=== PATIENT | female | born 1940 ===

== ENCOUNTER 2019-05-30 09:26 | Emergency (ER) | payer MEDICARE ==
[2019-05-30] MEDS ORDERED: oxyCODONE /ACETAMINOPHEN 5-325MG TAB PO ONE (09:54)
--- NOTE | 2019-05-30 09:59 | Emergency Department Report ---
ED General Adult HPI - General Chief complaint: Extremity Injury, Lower Stated complaint: LEG PAIN/FALL Time Seen by Provider: 05/30/19 09:43 Source: patient, EMS Mode of arrival: Wheelchair Limitations: No Limitations - History of Present Illness Initial comments: 78-year-old female patient with history of hypertension, diabetes, and hypothyroidism presents with complaints of bilateral leg pain, worse in the right and low back pain 2 weeks. Patient reports she fell about one month ago but did not have any pain at that time. She also has history of a right knee replacement. She denies any swelling in her legs, recent long travel, or history of DVT/PE or hormone use. She rates her pain as a 10/10 in severity and states that worsens with movement of the legs. Patient also denies any numbness/tingling/weakness in her legs, also latter/bowel control, or history of cancer. Patient states she is able to ambulate but the pain worsens with am bulation also. Patient reports pain improves with Tylenol. - Related Data Previous Rx's Medication Instructions Recorded Last Taken Type Acetaminophen/Codeine [Tylenol 1 tab PO Q8H PRN #8 tab 05/30/19 Unknown Rx /Codeine # 3 tab] Methocarbamol [Robaxin] 500 mg PO TID #21 tablet 05/30/19 Unknown Rx Allergies Allergy/AdvReac Type Severity Reaction Status Date / Time Sulfa (Sulfonamide Allergy Unknown Verified 05/30/19 09:44 Antibiotics) ED Review of Systems ROS: Stated complaint: LEG PAIN/FALL Other details as noted in HPI ED Past Medical Hx - Past Medical History Previous Medical History?: Yes Hx Hypertension: Yes Hx Diabetes: Yes Hx Arthritis: Yes - Surgical History Past Surgical History?: Yes Additional Surgical History: bilateral knee replacement - Social History Smoking Status: Never Smoker Substance Use Type: None - Medications Home Medications: Home Medications Medication Instructions Recorded Confirmed Last Taken Type Acetaminophen/Codeine [Tylenol 1 tab PO Q8H PRN #8 tab 05/30/19 Unknown Rx /Codeine # 3 tab] Methocarbamol [Robaxin] 500 mg PO TID #21 tablet 05/30/19 Unknown Rx ED Physical Exam - General Limitations: No Limitations ED Course Vital Signs 05/30/19 05/30/19 05/30/19 09:37 12:30 14:00 Temperature 97.8 F Pulse Rate 68 70 60 Respiratory 16 16 18 Rate Blood Pressure 208/93 Blood Pressure 195/74 213/100 [Left] Blood Pressure [Right] O2 Sat by Pulse 99 100 98 Oximetry 05/30/19 05/30/19 05/30/19 14:28 14:41 15:21 Temperature Pulse Rate 60 60 58 L Respiratory 16 16 Rate Blood Pressure Blood Pressure 232/85 223/96 [Left] Blood Pressure 230/98 [Right] O2 Sat by Pulse 100 100 98 Oximetry 05/30/19 05/30/19 05/30/19 15:25 16:00 16:30 Temperature Pulse Rate 58 L 59 L 56 L Respiratory Rate Blood Pressure 223/96 Blood Pressure 209/74 196/79 [Left] Blood Pressure [Right] O2 Sat by Pulse Oximetry 05/30/19 17:05 Temperature Pulse Rate 53 L Respiratory 18 Rate Blood Pressure Blood Pressure 158/65 [Left] Blood Pressure [Right] O2 Sat by Pulse 97 Oximetry ED Medical Decision Making - Lab Data Result diagrams: 05/30/19 16:18 05/30/19 16:18 - Radiology Data Radiology results: report reviewed DUPLEX DOPPLER LOWER EXTREMITY VEINS, BILATERAL INDICATION: Bilateral leg pain. History of fall last week. History of diabetes, hypertension and arthritis. TECHNIQUE: Duplex doppler imaging was performed through the veins of both lower extremities using venous compression and other maneuvers. COMPARISON: None available. FINDINGS: Right Common femoral vein: Negative. Right Superficial femoral vein: Negative. Right Popliteal vein: Negative. Right Calf veins: Negative. Left Common femoral vein: Negative. Left Superficial femoral vein: Negative. Left Popliteal vein: Negative. Left Calf veins: Negative. Additional findings: There is no evidence of a popliteal cyst or other significant abnormality. IMPRESSION: No sonographic evidence for DVT in either lower extremity. RIGHT FEMUR 2 VIEWS INDICATION / CLINICAL INFORMATION: Right flank pain. COMPARISON: None available. FINDINGS: BONES / JOINT(S): There is a right knee prosthesis. There are prominent hypertrophic changes involving the lower pole the patella and the patellar tendon is thickened. There is mild spurring involving the right greater trochanter. There is no evidence of fracture, dislocation or destructive lesion. SOFT TISSUES: No significant abnormality. ADDITIONAL FINDINGS: None. Signer Name: Miki Whitman MD Signed: 05/30/2019 11:53 AM Workstation Name: [email or web address] LUMBAR SPINE 3 VIEWS INDICATION: Right lower back pain. COMPARISON: No relevant prior imaging study available. FINDINGS: VERTEBRAE: Jaundice osteopenia is noted. No acute fracture is seen. There is exaggeration of the lumbar lordosis. Grade 1 anterolisthesis is noted at L3-L4 and L4-L5. There is minimal retrolisthesis of L1 on L2 and L2 on L3. DISC SPACES: Moderate to severe discogenic degenerative changes are seen at multiple levels and are most significant at L5-S1. FACET JOINTS: There is generalized facet hypertrophy. SOFT TISSUES: Mild aortic atherosclerosis is noted without an additional significant abnormality. ADDITIONAL FINDINGS: No additional significant findings. IMPRESSION: Moderate to severe lumbar spondylosis with multilevel anterolisthesis and retrolisthesis as above. - Medical Decision Making 78-year-old female patient with history of hypertension, diabetes, and hypothyroidism presents with complaints of bilateral leg pain, worse in the right and low back pain 2 weeks. Doppler ultrasound of legs is negative for DVT. X-ray of the femur is negative for acute findings. X-ray of lumbar spine shows significant chronic arthritic changes. Patient denies any red flag symptoms. Patient states pain is completely resolved with percocet and meloxicam. Patient's blood pressure noted to be elevated at 208/93. Patient reports she was recently discontinued from Maxide due to low blood pressure. She also reports she was recently started on a new medication for restless leg syndrome and believes that it is causing her blood pressure to increase. She denies any chest pain, shortness of breath, headaches, dizziness, vision changes or other complaints at this time. After Maxide and hydralazine, blood pressure now at 158/65. She continues to deny any symptoms. Patient is nontoxic appearing. Discussed patient with Dr. Ruelas-states patient is stable for discharge home given she is asymptomatic and recommends follow-up with her primary care provider tomorrow. Discussed strict return precautions in detail with patient who verbalizes understanding. Critical care attestation.: If time is entered above; I have spent that time in minutes in the direct care of this critically ill patient, excluding procedure time. ED Disposition Clinical Impression: Uncontrolled hypertension Low back pain with sciatica Qualifiers: Chronicity: acute Back pain laterality: right Sciatica laterality: bilateral sciatica Qualified Code(s): M54.42 - Lumbago with sciatica, left side Disposition: TO HOME OR SELFCARE Is pt being admited?: No Condition: Stable Instructions: Sciatica (ED), Acute Low Back Pain (ED), Lumbar Radiculopathy (ED), Hypertension (ED) Prescriptions: Methocarbamol [Robaxin] 500 mg PO TID #21 tablet Acetaminophen/Codeine [Tylenol /Codeine # 3 tab] 1 tab PO Q8H PRN #8 tab PRN Reason: Pain , Severe (7-10) Referrals: PRIMARY CAREMD [Primary Care Provider] - 05/31/19 (please have blood pressure reevaluated ) BERNADETTE HIDALGO MD [Staff Physician] - 2-3 Days
[2019-05-30] MEDS ORDERED: NAPROXEN 500 MG TAB PO ONE (10:30)
--- NOTE | 2019-05-30 11:05 | Vascular Lab Report ---
DUPLEX DOPPLER LOWER EXTREMITY VEINS, BILATERAL INDICATION: Bilateral leg pain. History of fall last week. History of diabetes, hypertension and arthritis. TECHNIQUE: Duplex doppler imaging was performed through the veins of both lower extremities using venous bogdan garry and other maneuvers. COMPARISON: None available. FINDINGS: Right Common femoral vein: Negative. Right Superficial femoral vein: Negative. Right Popliteal vein: Negative. Right Calf veins: Negative. Left Common femoral vein: Negative. Left Superficial femoral vein: Negative. Left Popliteal vein: Negative. Left Calf veins: Negative. Additional findings: There is no evidence of a popliteal cyst or other significant abnormality. IMPRESSION: No sonographic evidence for DVT in either lower extremity. Signer Name: Miki Whitman MD Signed: 05/30/2019 11:00 AM Workstation Name: [id number]
--- NOTE | 2019-05-30 11:57 | XRay Report ---
RIGHT FEMUR 2 VIEWS INDICATION / CLINICAL INFORMATION: Right flank pain. COMPARISON: None available. FINDINGS: BONES / JOINT(S): There is a right knee prosthesis. There are prominent hypertrophic changes involvin g the lower pole the patella and the patellar tendon is thickened. There is mild spurring involving t he right greater trochanter. There is no evidence of fracture, dislocation or destructive lesion. SOFT TISSUES: No significant abnormality. ADDITIONAL FINDINGS: None. Signer Name: Miki Whitman MD Signed: 05/30/2019 11:53 AM Workstation Name: [id number]
--- NOTE | 2019-05-30 11:59 | XRay Report ---
LUMBAR SPINE 3 VIEWS INDICATION: Right lower back pain. COMPARISON: No relevant prior imaging study available. FINDINGS: VERTEBRAE: Jaundice osteopenia is noted. No acute fracture is seen. There is exaggeration of the lumb ar lordosis. Grade 1 anterolisthesis is noted at L3-L4 and L4-L5. There is minimal retrolisthesis of L1 on L2 and L2 on L3. DISC SPACES: Moderate to severe discogenic degenerative changes are seen at multiple levels and are m ost significant at L5-S1. FACET JOINTS: There is generalized facet hypertrophy. SOFT TISSUES: Mild aortic atherosclerosis is noted without an additional significant abnormality. ADDITIONAL FINDINGS: No additional significant findings. IMPRESSION: Moderate to severe lumbar spondylosis with multilevel anterolisthesis and retrolisthesis as above. Signer Name: Yannick Lopez MD Signed: 05/30/2019 11:55 AM Workstation Name: [id number]
[2019-05-30] MEDS ORDERED: TRIAMTER/HCTZ 37.5-25 MG TAB PO SCH (14:00)
[2019-05-30] MEDS ORDERED: hydrALAZINE 25 MG TAB PO ONE (15:03)
[2019-05-30 16:59] LABS: Basophils % (Auto) 0.5 % (0.0-1.8); Eosinophils # (Auto) 0.1 K/mm3 (0.0-0.4); Eosinophils % (Auto) 3.1 % (0.0-4.3); Hematocrit 42.2 % (30.3-42.9); Hemoglobin 14.2 gm/dl (10.1-14.3); Lymphocytes # (Auto) 1.2 K/mm3 (1.2-5.4); Lymphocytes % (Auto) 32.8 % (13.4-35.0); Mean Corpuscular HGB Conc 34 % (30-34); Mean Corpuscular Volume 91 fl (79-97); Monocytes # (Auto) 0.4 K/mm3 (0.0-0.8); Monocytes % (Auto) 9.7 % (0.0-7.3); Platelet Count 224 K/mm3 (140-440); Red Blood Count 4.63 M/mm3 (3.65-5.03); Red Cell Distribution Width 14.3 % (13.2-15.2)
[2019-05-30 17:06] VITALS: BP 158/65
[2019-05-30 17:40] LABS: BUN/Creatinine Ratio 19; Blood Urea Nitrogen 13 mg/dL (7-17); Calcium 9.7 mg/dL (8.4-10.2); Hemolysis Index 3
== END 2019-05-30 18:36 | disposition home or self-care (01) ==
LOC: ED 09:26
DX: M54.41 Lumbago with sciatica, right side (principal); I10 Essential (primary) hypertension; M79.604 Pain in right leg; M79.605 Pain in left leg; E11.9 Type 2 diabetes mellitus without complications; M19.90 Unspecified osteoarthritis, unspecified site; Z79.899 Other long term (current) drug therapy; Z88.2 Allergy status to sulfonamides
CPT/HCPCS: 36415; 72100; 80048; 85025; 93970

== ENCOUNTER 2019-06-02 08:54 | Emergency (ER) | payer MEDICARE ==
--- NOTE | 2019-06-02 09:18 | Emergency Department Report ---
HPI - General Time Seen by Provider: 06/02/19 09:06 - HPI HPI: 78-year-old female presents to the emergency department via EMS from home after she accidentally took an extra [place] 10/325 mg pill. She took one at 6 AM and then another at 7 AM when she thought she was taking a different medication. She is on this for chronic severe foot and ankle pain that she says was d iagnosed as restless leg syndrome. She also has a history of hypertension, hypothyroidism and borderline diabetes. The patient called poison control and was told that she should go to the emergency department since there is no one at home to watch her and make sure that she does not become too sedated or altered secondary to the narcotic pain medication. Currently the patient is awake, alert. She has no complaints of any fatigue or sedation, nausea, or any acute complaint. ED Past Medical Hx - Past Medical History Hx Hypertension: Yes Hx Diabetes: Yes Hx Arthritis: Yes - Surgical History Additional Surgical History: bilateral knee replacement - Social History Smoking Status: Never Smoker Substance Use Type: None - Medications Home Medications: Home Medications Medication Instructions Recorded Confirmed Last Taken Type Acetaminophen/Codeine [Tylenol 1 tab PO Q8H PRN #8 tab 05/30/19 Unknown Rx /Codeine # 3 tab] Methocarbamol [Robaxin] 500 mg PO TID #21 tablet 05/30/19 Unknown Rx ED Review of Systems ROS: Stated complaint: TOOK EXTRA MEDS Other details as noted in HPI Comment: All other systems reviewed and negative Constitutional: denies: chills, fever Eyes: denies: eye pain, vision change ENT: denies: ear pain, throat pain Respiratory: denies: cough, shortness of breath Cardiovascular: denies: chest pain, palpitations Gastrointestinal: denies: abdominal pain, vomiting Genitourinary: denies: dysuria, discharge Musculoskeletal: denies: back pain, joint swelling Skin: denies: rash, lesions Neurological: denies: headache, weakness Physical Exam - Physical Exam Physical Exam: GENERAL: The patient is well-developed well-nourished. HEENT: Normocephalic. Atraumatic. Patient has moist mucous membranes. EYES: Extraocular motions are intact. NECK: Supple. Trachea is midline. CHEST/LUNGS: Clear to auscultation. There is no respiratory distress noted. HEART/CARDIOVASCULAR: Regular. There is no tachycardia. There is no murmur. ABDOMEN: Abdomen is soft, nontender. Patient has normal bowel sounds. There is no abdominal distention. SKIN:Skin is warm and dry. . NEURO: The patient is awake, alert, and oriented. The patient is cooperative. The patient has no focal neurologic deficits. Normal speech. Cranial nerves II through XII grossly intact. MUSCULOSKELETAL: There is no tenderness or deformity. There is no evidence of acute injury. ED Medical Decision Making - Lab Data Result diagrams: 06/02/19 09:18 06/02/19 09:18 - Medical Decision Making This patient presents for evaluation after she accidentally took one extra [place] 10 mg/325. This was at the recommendation of poison control. The patient has been awake, alert and oriented throughout her entire ED course. Labs have been unremarkable including CBC, metabolic panel and acetaminophen level. Her vital signs and stable throughout her ED course. The patient's sister came to get the patient and will continue to monitor her, however the half-life of these medications should be ending soon. She has been instructed to try to avoid any further narcotic use today and to follow up with her primary care physician. She will return to the ER with any worsening of her symptoms or any acute distress. Critical Care Time: No Critical care attestation.: If time is entered above; I have spent that time in minutes in the direct care of this critically ill patient, excluding procedure time. ED Disposition Clinical Impression: Accidental overdose Qualifiers: Encounter type: initial encounter Qualified Code(s): T50.901A - Poisoning by unspecified drugs, medicaments and biological substances, accidental (unintentional), initial encounter Disposition: -01 TO HOME OR SELFCARE Is pt being admited?: No Condition: Stable Additional Instructions: Please follow up with your primary care physician in the next few days. Take your medications only as prescribed. Please return to the emergency Department with any worsening of your symptoms or any acute distress. Referrals: PRIMARY CARE, [Referring] - 2-3 Days Time of Disposition: 11:19
[2019-06-02 09:40] LABS: Basophils % (Auto) 0.2 % (0.0-1.8); Eosinophils % (Auto) 0.7 % (0.0-4.3); Hematocrit 39.7 % (30.3-42.9); Hemoglobin 13.3 gm/dl (10.1-14.3); Lymphocytes # (Auto) 0.8 K/mm3 (1.2-5.4); Lymphocytes % (Auto) 14.2 % (13.4-35.0); Mean Corpuscular HGB Conc 34 % (30-34); Mean Corpuscular Volume 91 fl (79-97); Monocytes # (Auto) 0.3 K/mm3 (0.0-0.8); Monocytes % (Auto) 5.2 % (0.0-7.3); Platelet Count 217 K/mm3 (140-440); Red Blood Count 4.36 M/mm3 (3.65-5.03); Red Cell Distribution Width 14.4 % (13.2-15.2)
[2019-06-02 09:49] LABS: BUN/Creatinine Ratio 23; Blood Urea Nitrogen 18 mg/dL (7-17); Calcium 9.6 mg/dL (8.4-10.2); Hemolysis Index 10
[2019-06-02 12:01] VITALS: BP 145/72
== END 2019-06-02 12:01 | disposition home or self-care (01) ==
LOC: ED 08:54
DX: T65.91XA Toxic effect of unspecified substance, accidental (unintentional), initial encounter (principal); I10 Essential (primary) hypertension; E11.9 Type 2 diabetes mellitus without complications; M19.90 Unspecified osteoarthritis, unspecified site; Z98.890 Other specified postprocedural states; Z79.899 Other long term (current) drug therapy; Z88.2 Allergy status to sulfonamides; Y92.89 Other specified places as the place of occurrence of the external cause
CPT/HCPCS: 36415; 80048; 80320; 85025; G0480

== ENCOUNTER 2019-06-09 15:19 | Emergency (ER) | payer MEDICARE ==
[2019-06-09 15:30] VITALS: BP 132/74
--- NOTE | 2019-06-09 17:10 | Event Note ---
ED Screening Note ED Screening Note: pt with right back and flank pain, NV last night. states a fall 4 weeks ago that was initially not causing pain in this area. 8/10 pain poor historian This initial assessment/diagnostic orders/clinical plan/treatment(s) is/are subject to change based on patients health status, clinical progression and re- assessment by fellow clinical providers in the ED. Further treatment and workup at subsequent clinical providers discretion. Patient/guardian urged not to elope from the ED as their condition may be serious if not clinically assessed and managed. Initial orders include: CT ap (r/o bony injury, kidney stones and AAA labs UA
[2019-06-09 17:44] LABS: Basophils % (Auto) 0.6 % (0.0-1.8); Eosinophils # (Auto) 0.1 K/mm3 (0.0-0.4); Hematocrit 41.1 % (30.3-42.9); Hemoglobin 13.9 gm/dl (10.1-14.3); Lymphocytes # (Auto) 1.5 K/mm3 (1.2-5.4); Lymphocytes % (Auto) 31.9 % (13.4-35.0); Mean Corpuscular HGB Conc 34 % (30-34); Mean Corpuscular Volume 91 fl (79-97); Monocytes # (Auto) 0.4 K/mm3 (0.0-0.8); Monocytes % (Auto) 8.2 % (0.0-7.3); Platelet Count 269 K/mm3 (140-440); Red Blood Count 4.53 M/mm3 (3.65-5.03); Red Cell Distribution Width 14.3 % (13.2-15.2)
[2019-06-09 18:04] LABS: BUN/Creatinine Ratio 20; Blood Urea Nitrogen 14 mg/dL (7-17); Calcium 9.8 mg/dL (8.4-10.2); Hemolysis Index 10
--- NOTE | 2019-06-09 19:09 | Emergency Department Report ---
HPI - General Chief Complaint: Extremity Problem,Nontraumatic Time Seen by Provider: 06/09/19 18:33 - HPI HPI: Room 37 The pt is a 78 y/o F p/w a cc of RLE pain. The pt states she's had BLE pain for ~ 2 years. The pt states she was evenually given a diagnosis of restless leg syndrome and sciatica. The pt states she was started on a medication for RLS and her syx improved. The pt states over the last 4 weeks she has again had pain to ble but greatest from the right buttocks radiating to the right foot. Pt also c/o burning pain to bilat ankles. Pt states she has an appointment to see a specialist 06/19 ED Past Medical Hx - Past Medical History Previous Medical History?: Yes Hx Hypertension: Yes Hx Diabetes: No (Pre- Diabetic) Hx Arthritis: Yes Additional medical history: hypothyroidism - Surgical History Past Surgical History?: Yes Additional Surgical History: bilateral knee replacement, dental implants - Family History Family history: no significant - Social History Smoking Status: Never Smoker Substance Use Type: None, Alcohol (rarely) - Medications Home Medications: Home Medications Medication Instructions Recorded Confirmed Last Taken Type Acetaminophen/Codeine [Tylenol 1 tab PO Q8H PRN #8 tab 05/30/19 Unknown Rx /Codeine # 3 tab] Methocarbamol [Robaxin] 500 mg PO TID #21 tablet 05/30/19 Unknown Rx Dicyclomine [Bentyl] 20 mg PO QID #20 tablet 06/09/19 Unknown Rx Docusate Sodium [Colace] 100 mg PO BID PRN #60 capsule 06/09/19 Unknown Rx HYDROcodone/APAP 5-325 [[place] 1 each PO Q6HR PRN #14 tablet 06/09/19 Unknown Rx 5/325] Lactulose [Cephulac] 20 gm PO QDAY PRN #90 ml 06/09/19 Unknown Rx ED Review of Systems ROS: Stated complaint: LEG PAIN Other details as noted in HPI Constitutional: no symptoms reported Eyes: denies: eye pain ENT: denies: throat pain Respiratory: no symptoms reported Cardiovascular: denies: chest pain Endocrine: no symptoms reported Genitourinary: denies: dysuria Musculoskeletal: arthralgia, myalgia Neurological: denies: headache Physical Exam - Physical Exam Vital Signs: Vital Signs 06/09/19 15:24 Temperature 97.8 F Pulse Rate 67 Respiratory 16 Rate Blood Pressure 132/74 O2 Sat by Pulse 99 Oximetry Physical Exam: GEN: WD WN F sitting on stretcher using mobile phone in NAD HEENT: NCAT, EOMI NECK:Trachea midline, no stridor CV: rrr no m/r/g Pulm: CTAB. no resp distress ABD: s/nt/nd +BS Neuro: GCS 15 SKIN: no diaphoresis MS: no evidence of acute injury ED Course Vital Signs 06/09/19 15:24 Temperature 97.8 F Pulse Rate 67 Respiratory 16 Rate Blood Pressure 132/74 O2 Sat by Pulse 99 Oximetry ED Medical Decision Making - Lab Data Result diagrams: 06/09/19 17:29 06/09/19 17:29 Laboratory Tests 06/09/19 06/09/19 17:29 17:29 WBC 4.7 RBC 4.53 Hgb 13.9 Hct 41.1 MCV 91 MCH 31 MCHC 34 RDW 14.3 Plt Count 269 Lymph % (Auto) 31.9 Canadian % (Auto) 8.2 H Eos % (Auto) 2.0 Baso % (Auto) 0.6 Lymph # 1.5 Canadian # 0.4 Eos # 0.1 Baso # 0.0 Seg Neutrophils % 57.3 Seg Neutrophils # 2.7 Sodium 136 L Potassium 4.1 Chloride 97.2 L Carbon Dioxide 26 Anion Gap 17 BUN 14 Creatinine 0.7 Estimated GFR > 60 BUN/Creatinine Ratio 20 Glucose 102 H Calcium 9.8 - Radiology Data Radiology results: report reviewed (CT abd pelvis), image reviewed (CT Abd pelvis) [facility] [address] [place] [address] Cat Scan Report Signed Patient: JUSTIN RIOS MR#: [id number] : 1940 Acct:[id number] Age/Sex: 78 / F ADM Date: 06/09/19 Loc: ED Attending Dr: Ordering Physician: JUANJOSE HORN MD Date of Service: 06/09/19 Procedure(s): CT abdomen pelvis w con Accession Number(s): [id number] cc: JUANJOSE HORN MD CT abdomen pelvis w con INDICATION / CLINICAL INFORMATION: right sided flank pain. TECHNIQUE: All CT scans at this location are performed using CT dose reduction for ALARA by means of automated exposure control. COMPARISON: None available. FINDINGS: Limited lower thoracic images show no acute lung disease. ABDOMEN: There are multiple large gallstones. Moderate intrahepatic bile duct dilatation is identified. The common duct tapers normally at the level of the pancreas. Pancreatic duct is slightly prominent without evidence of pancreatic mass. No hepatic lesions. The spleen is normal. A 2.5 cm right renal cyst is imaged. No evidence of hydronephrosis or urinary calculi. No retroperitoneal or mesenteric adenopathy. Adrenal glands are normal. Pelvis: No dependent fluid collections are seen in the pelvis. Diverticulosis of the descending and sigmoid colon without evidence of acute diverticulitis. Degenerative changes are seen in the lower thoracic spine. There is anterior spondylolisthesis of L4 on L5. Sclerosis of the the symphysis pubis is noted. IMPRESSION: 1. Cholelithiasis with intrahepatic bile duct and pancreatic duct dilatation. 2. Diverticulosis. Signer Name: Krystian Day MD Signed: 06/09/2019 8:44 PM Workstation Name: [id number] Transcribed By: WILLIAM Dictated By: Krystian Day MD Electronically Authenticated By: Krystian Day MD Signed Date/Time: 06/09/192043 DD/ 28 TD/TT: - Differential Diagnosis sciatica, RLS, neuropathy Critical care attestation.: If time is entered above; I have spent that time in minutes in the direct care of this critically ill patient, excluding procedure time. ED Disposition Clinical Impression: Sciatica, Cholelithiasis Disposition: DC-01 TO HOME OR SELFCARE Is pt being admited?: No Does the pt Need Aspirin: No Condition: Stable Instructions: Lumbar Radiculopathy (ED) Prescriptions: Dicyclomine [Bentyl] 20 mg PO QID #20 tablet Lactulose [Cephulac] 20 gm PO QDAY PRN #90 ml PRN Reason: Constipation Docusate Sodium [Colace] 100 mg PO BID PRN #60 capsule PRN Reason: Constipation HYDROcodone/APAP 5-325 [[place] 5/325] 1 each PO Q6HR PRN #14 tablet PRN Reason: Pain Referrals: PRIMARY CARE, [Referring] - 3-5 Days BRUCE SAAVEDRA MD [Staff Physician] - 3-5 Days JUSTINE LIZAMA MD [Staff Physician] - 3-5 Days (Dr Lizama is a neurologist. Please follow up with him for further evaluation) Time of Disposition: 21:01
--- NOTE | 2019-06-09 20:48 | Cat Scan Report ---
CT abdomen pelvis w con INDICATION / CLINICAL INFORMATION: right sided flank pain. TECHNIQUE: All CT scans at this location are performed using CT dose reduction for ALARA by means of automated e xposure control. COMPARISON: None available. FINDINGS: Limited lower thoracic images show no acute lung disease. ABDOMEN: There are multiple large gallstones. Moderate intrahepatic bile duct dilatation is identified. The co mmon duct tapers normally at the level of the pancreas. Pancreatic duct is slightly prominent without evidence of pancreatic mass. No hepatic lesions. The spleen is normal. A 2.5 cm right renal cyst is imaged. No evidence of hydronephrosis or urinary calculi. No retroperitoneal or mesenteric adenopathy. Adrenal glands are normal. Pelvis: No dependent fluid collections are seen in the pelvis. Diverticulosis of the descending and sigmoid colon without evidence of acute diverticulitis. Degenerative changes are seen in the lower thoracic spine. There is anterior spondylolisthesis of L4 on L5. Sclerosis of the the symphysis pubis is noted. IMPRESSION: 1. Cholelithiasis with intrahepatic bile duct and pancreatic duct dilatation. 2. Diverticulosis. Signer Name: Krystian Day MD Signed: 06/09/2019 8:44 PM Workstation Name: [id number]
== END 2019-06-09 21:00 | disposition home or self-care (01) ==
LOC: ED 15:19
DX: K80.20 Calculus of gallbladder without cholecystitis without obstruction (principal); M54.30 Sciatica, unspecified side; E03.9 Hypothyroidism, unspecified; I10 Essential (primary) hypertension; M19.90 Unspecified osteoarthritis, unspecified site; Z98.890 Other specified postprocedural states; Z79.899 Other long term (current) drug therapy; Z88.2 Allergy status to sulfonamides
CPT/HCPCS: 36415; 74177; 80048; 85025; 99284; Q9967

== ENCOUNTER 2019-07-05 22:47 | Emergency (ER) | payer MEDICARE ==
[2019-07-05] MEDS ORDERED: SODIUM CHLORIDE 0.9% 1000 ML 1,000 ML IV ONE (23:25)
[2019-07-05] MEDS ORDERED: ONDANSETRON 4 MG ODT TAB PO ONE (23:25)
--- NOTE | 2019-07-05 23:29 | Emergency Department Report ---
HPI - General Chief Complaint: Nausea/Vomiting/Diarrhea Time Seen by Provider: 07/05/19 23:24 - HPI HPI: 78-year-old female presents to the emergency department via EMS from home with complaint of nausea, vomiting and dizziness. Patient says that the nausea and dizziness started around 3 PM this afternoon. The dizziness is more of a lightheadedness and/or near syncope feeling. The patient took her tramadol for her back pain and went to sleep at about 3:30 PM. She woke up around 9 PM and says the dizziness had increased. It got to the point where she felt like she was having difficulty standing up and walking around because she feels like she would have passed out. She then had multiple episodes of vomiting. She checked her blood sugar and it was about 210 which is high for her. She has a past medical history of borderline diabetes but is on metformin. She also has a history of recently diagnosed lumbar stenosis, hypertension, hyperthyroidism and osteoarthritis. No recent travel or sick contacts at home. She denies any feve r, chest pain, shortness of breath, lower extremity swelling, but does now complain of a generalized headache. No vision change, slurred speech, numbness or any other neurological deficits. Her primary care physician is Dr. Barnett and her Neurologist is a Dr Miki Aleman. ED Past Medical Hx - Past Medical History Previous Medical History?: Yes Hx Hypertension: Yes Hx Diabetes: No (Pre- Diabetic) Hx Arthritis: Yes Additional medical history: hypothyroidism - Surgical History Past Surgical History?: Yes Additional Surgical History: bilateral knee replacement, dental implants - Social History Smoking Status: Never Smoker Substance Use Type: None - Medications Home Medications: Home Medications Medication Instructions Recorded Confirmed Last Taken Type Acetaminophen/Codeine [Tylenol 1 tab PO Q8H PRN #8 tab 05/30/19 Unknown Rx /Codeine # 3 tab] Methocarbamol [Robaxin] 500 mg PO TID #21 tablet 05/30/19 Unknown Rx Dicyclomine [Bentyl] 20 mg PO QID #20 tablet 06/09/19 Unknown Rx Docusate Sodium [Colace] 100 mg PO BID PRN #60 capsule 06/09/19 Unknown Rx HYDROcodone/APAP 5-325 [[place] 1 each PO Q6HR PRN #14 tablet 06/09/19 Unknown Rx 5/325] Lactulose [Cephulac] 20 gm PO QDAY PRN #90 ml 06/09/19 Unknown Rx Ondansetron [Zofran Odt] 4 mg PO Q8HR PRN #14 tab.[email or web address] 07/06/19 Unknown Rx ED Review of Systems ROS: Stated complaint: HYPERGLYCEMIA, NAUSEA AND VOMITING Other details as noted in HPI Comment: All other systems reviewed and negative Constitutional: denies: chills, fever Eyes: denies: eye pain, vision change ENT: denies: ear pain, throat pain Respiratory: denies: cough, shortness of breath Cardiovascular: denies: chest pain, palpitations Gastrointestinal: nausea, vomiting Genitourinary: denies: dysuria, discharge Musculoskeletal: denies: joint swelling, arthralgia Skin: denies: rash, lesions Neurological: headache, other (lightheaded) Physical Exam - Physical Exam Vital Signs: Vital Signs 07/05/19 07/05/19 23:06 23:11 Temperature 98.2 F Pulse Rate 54 L Respiratory 17 17 Rate Blood Pressure 157/63 Blood Pressure 157/63 [Right] O2 Sat by Pulse 99 99 Oximetry Physical Exam: GENERAL: The patient is well-developed well-nourished. HENT: Normocephalic. Atraumatic. Patient has moist mucous membranes. EYES: Extraocular motions are intact. Pupils equal reactive to light bilaterally. No nystagmus. NECK: Supple. Trachea is midline. CHEST/LUNGS: Clear to auscultation. There is no respiratory distress noted. HEART/CARDIOVASCULAR: Regular. There is no tachycardia. ABDOMEN: Abdomen is soft, nontender. Patient has normal bowel sounds. SKIN: Skin is warm and dry. NEURO: The patient is awake, alert, and oriented. The patient is cooperative. The patient has no focal neurologic deficits. Normal speech. Cranial nerves II through XII grossly intact. No pronator drift. No dysmetria. No facial asymmetry. MUSCULOSKELETAL: There is no tenderness or deformity. There is no limitation range of motion. There is no evidence of acute injury. ED Course Vital Signs 07/05/19 07/05/19 23:06 23:11 Temperature 98.2 F Pulse Rate 54 L Respiratory 17 17 Rate Blood Pressure 157/63 Blood Pressure 157/63 [Right] O2 Sat by Pulse 99 99 Oximetry ED Medical Decision Making - Lab Data Result diagrams: 07/05/19 23:36 07/05/19 23:36 - EKG Data -: EKG Interpreted by Me EKG shows normal: sinus rhythm, axis, intervals, QRS complexes, ST-T waves Rate: bradycardia (50 bpm) - EKG Data When compared to previous EKG there are: previous EKG unavailable Interpretation: normal EKG (with bradycardia, 50 bpm) - Radiology Data Radiology results: report reviewed Head CT without intravenous contrast INDICATION: Altered mental status COMPARISON: None FINDINGS: The ventricles are normal in size and position. No hemorrhage or extra-axial fluid collection. No edema or mass effect. No focal i nfarct seen. Portions of the sinuses visualized are clear. No skull fracture identified. IMPRESSION: Negative head CT - Medical Decision Making This patient presents to the emergency department with a complaint of some dizziness/lightheadedness and nausea and vomiting. Since being in the emergency department the patient does not appear in any acute distress. There has been no focal, motor or sensory deficits and her cranial nerves are intact. An EKG was done that does not show any signs of ST elevation SD or dysrhythmia. Patient's labs have been unremarkable including CBC, metabolic panel, TSH, troponin, ammonia and urinalysis. A CT scan of the head without contrast was done that does not show any acute bleed, shift, mass, ischemia, or any other acute process. Her vital signs been stable throughout her ED course. The patient was seen ambulatory in the emergency department and both appears and feels stable. Overall patient says she is greatly improved. She will be discharged home to follow-up with her primary care physician and will return to the ER with any worsening of her symptoms or any acute distress. - Differential Diagnosis Vertigo, dysrhythmia, hypoglycemia, TIA Critical Care Time: No Critical care attestation.: If time is entered above; I have spent that time in minutes in the direct care of this critically ill patient, excluding procedure time. ED Disposition Clinical Impression: Dizziness Nausea & vomiting Qualifiers: Vomiting type: unspecified Vomiting Intractability: non-intractable Qualified Code(s): R11.2 - Nausea with vomiting, unspecified Disposition: DC-01 TO HOME OR SELFCARE Is pt being admited?: No Condition: Stable Instructions: Acute Nausea and Vomiting (ED), Lightheadedness (ED), Dizziness (ED) Additional Instructions: Please follow-up with your primary care physician in the next few days. Return to the emergency department with any worsening of your symptoms or any acute distress. Prescriptions: Ondansetron [Zofran Odt] 4 mg PO Q8HR PRN #14 tab.rapdis PRN Reason: Nausea Referrals: PRIMARY CARE, [Primary Care Provider] - 2-3 Days Time of Disposition: 04:01 - Assessment Assessment Interval: Baseline - Level of Consciousness 1a. Level of Consciousness: alert/keenly responsive - LOC Questions 1b. LOC Questions: answers both correctly - LOC Command 1c. LOC Commands: performs tasks correctly - Best Gaze 2. Best Gaze: normal - Visual 3. Visual: no visual loss - Facial Palsy 4. Facial Palsy: normal symmetrical movement - Motor Arm 5a. Motor Arm Left: no drift 5b. Motor Arm Right: no drift - Motor Leg 6a. Motor Leg Left: no drift 6b. Motor Leg Right: no drift - Limb Ataxia 7. Limb Ataxia: absent - Sensory 8. Sensory: normal - Best Language 9. Best Language: no aphasia - Dysarthria 10. Dysarthria: normal - Extinction and Inattention 11. Extinction/Inattention: no abnormality - Scoring Total Score: 0 Stroke Severity: No Stroke Symptoms
[2019-07-06 00:03] LABS: Hematocrit 43.7 % (30.3-42.9); Hemoglobin 14.6 gm/dl (10.1-14.3); Mean Corpuscular HGB Conc 34 % (30-34); Mean Corpuscular Volume 91 fl (79-97); Platelet Count 215 K/mm3 (140-440); Red Blood Count 4.78 M/mm3 (3.65-5.03); Red Cell Distribution Width 14.3 % (13.2-15.2)
[2019-07-06 00:28] LABS: Alanine Aminotransferase 15 units/L (7-56); Albumin 4.5 g/dL (3.9-5); BUN/Creatinine Ratio 31; Blood Urea Nitrogen 28 mg/dL (7-17); Calcium 9.6 mg/dL (8.4-10.2); Hemolysis Index 9
--- NOTE | 2019-07-06 00:50 | Cat Scan Report ---
Head CT without intravenous contrast INDICATION: Altered mental status COMPARISON: None FINDINGS: The ventricles are normal in size and position. No hemorrhage or extra-axial fluid collecti on. No edema or mass effect. No focal infarct seen. Portions of the sinuses visualized are clear. No skull fracture identified. IMPRESSION: Negative head CT Automated exposure control was utilized to diminish radiation dose Signer Name: Cayetano Bergeron MD Signed: 07/06/2019 12:46 AM Workstation Name: [id number]
[2019-07-06 01:19] LABS: Band Neutrophils # (Manual) 0.1 K/mm3; Basophils % (Manual) 0 % (0.0-1.8); Eosinophils % (Manual) 0 % (0.0-4.3); Monocytes % (Manual) 0 % (0.0-7.3); Platelet Estimate Consistent w Auto; Total Cells Counted 100
[2019-07-06 03:21] VITALS: BP 138/62
[2019-07-06 03:54] LABS: Bilirubin,Urine NEG (Negative); Blood,Urine NEG (Negative); Color,Urine Straw (Yellow); Hyaline Casts,Urine 1 /LPF; Mucus,Urine FEW /HPF; Protein,Urine <15 mg/dL mg/dL (Negative); Urobilinogen,Urine < 2.0 mg/dL (<2.0); WBC,Urine < 1.0 /HPF (0.0-6.0)
== END 2019-07-06 04:15 | disposition home or self-care (01) ==
LOC: ED 22:47
DX: R11.2 Nausea with vomiting, unspecified (principal); R42 Dizziness and giddiness; I10 Essential (primary) hypertension; E03.9 Hypothyroidism, unspecified; M19.90 Unspecified osteoarthritis, unspecified site; Z88.2 Allergy status to sulfonamides; Z79.899 Other long term (current) drug therapy; Z98.890 Other specified postprocedural states
CPT/HCPCS: 36415; 70450; 80053; 81001; 82140; 84443; 84484; 85007; 85025; 93005; 93010; 96360; 99285; J7030; 96361; Q0162